=== PATIENT | female | born 1965 | race Caucasian/White ===

== ENCOUNTER 2016-09-12 17:39 | Emergency (ER) | payer BC, OTHER ==
--- NOTE | 2016-09-12 18:43 | ERNOTE ---
Lower Extremity HPI - Narrative Date of Service: 09/12/16 - General Lower Extremities Pain: hip: right, knee: right Time Seen by Provider: 09/12/16 17:51 Source: patient Exam Limitations: no limitations - Immun/Allergies/Home Medications Immunizations: IMMUNIZATION HX Immunizations Up to Date Yes History of Influenza Vaccine Yes Hx Pneumococcal Vaccination No Allergies/Adverse Reactions: Allergies Allergy/AdvReac Type Severity Reaction Status Date / Time hydromorphone HCl Allergy Mild Other Verified 09/12/16 17:49 [From Dilaudid] morphine Allergy Mild Itching Verified 09/12/16 17:49 Home Medications: HOME MEDICATIONS Cyanocobalamin (Vitamin B-12) [Vitamin B-12] 1,000 mcg PO DAILY 05/28/12 [Last Taken Unknown] Duloxetine HCl [Cymbalta] 120 mg PO DAILY 05/28/12 [Last Taken Unknown] Lansoprazole [Prevacid] 30 mg PO DAILY 05/28/12 [Last Taken Unknown] Lovastatin 40 mg PO DAILY 05/28/12 [Last Taken Unknown] Metoprolol Succinate [Toprol Xl] 100 mg PO BID 05/28/12 [Last Taken Unknown] Multivitamin [Multivitamins] 1 each PO DAILY 05/28/12 [Last Taken Unknown] Cyclobenzaprine HCl [Flexeril] 10 mg PO TID 03/07/15 [Last Taken Unknown] Meloxicam [Mobic] 25 mg PO DAILY 03/07/15 [Last Taken Unknown] traMADol HCL [Ultram] 25 mg PO BID 03/07/15 [Last Taken Unknown] Lidocaine [Aspercreme] 1 each TP PRN 09/12/16 [Last Taken Unknown] - History of Present Illness Narrative: Patient presents to the ED with lateral right hip pain. She states she was at work and her right knee gave out. This is not unusual for her and she has had this happen many times. What was different this time was that she felt a "pop" in her lateral right hip when this happened and she had immediate pain lateral right hip. She tells me she has had bursitis in this hip before that felt like this. Chronic orthopedic pains and radicular Sx but no new N/T/W. No fall or other injuries. Pain worse with movement and palpation. She has been bearing weight. No new back pain. She has not seen anyone else for this. She states she has chronic pain in her knee and that her knee is not really bothering her. No new knee pain that she can pinpoint. Occurred: just prior to arrival Location of Incident: work Method of Injury: Reports: twisted Loss of Consciousness: Reports: no loss of consciousness Modifying Factors - (Improves): Reports: rest Modifying Factors - (Worsens): Reports: movement, other - palpation Associated Symptoms: Denies: unable to bear weight, dizzy/light headedness, weakness, bowel/bladder problems Other Injuries: Reports: none Subsequent Symptoms: Denies: sensory loss, numbness, motor loss, bowel/bladder problem Prior Treament: Denies: recently seen Review of Systems - Review of Systems Constitutional: Absent: fever Respiratory: Present: no symptoms reported Cardiology: Present: no symptoms reported Gastrointestinal/Abdominal: Absent: abdominal pain Musculoskeletal: Present: See HPI Skin: Present: other - no laceration - Patient's Past Medical History Patient History - Medical: Arthritis, Fibromyalgia Patient History - Cardiac/Respiratory: Hyperlipidemia Patient History - Cancer: No Hx of Cancer Patient History - Surgical Procedures: Amputation, Appendectomy, Tubal Ligation Patient History - Other: None - Social History Living Situations: home Abuse History: No History of abuse Psych History: Hx of Anxiety, Hx of Depression, Hx of Bipolar Disorder Smoking Status: Never smoker Alcohol Use: rarely Drug Use: none - Immunizations Immunizations Up to Date: Yes Hx Pneumococcal Vaccination: No History of Influenza Vaccine: Yes Physical Exam - Physical Exam General Appearance: Present: alert, no apparent distress Eye Exam: Normal inspection: bilateral Ears, Nose, Throat: Present: normal ENT inspection Respiratory: Present: no respiratory distress Cardiovascular/Chest: Present: regular rate, rhythm, normal peripheral pulses Peripheral Pulses: N=norm/S=strong/W=weak/B=bound/A=absent: Dorsalis-pedis (R): Normal Gastrointestinal/Abdominal: Present: normal bowel sounds, nontender, soft Back Exam: Present: other - no acute vertebral tenderness. Extremity Exam: Present: other - She is able to ambulate but has an antalgic gate. She has moderate lateral hip tenderness to palpation. No repin tendenress. ROM of the hip does not elicit groin tendenres. All her Sx seem to be reproduced with palpation of the lateral hip. There is mild joint line tendenress medial knee and lateral knee but she relates this is pretty normal for her, she does not think she injured her knee. No other bone tenderness noted. Neurological Exam: Present: other - she has chronic numbness. I find no evidence of compartment syndrome or acute focal motor or sensory deficit. She can stand on her toes and heels. No clear motor or sensory deficit. Skin Exam: Absent: skin rash ED Progress - Vital Signs Patient's Vital Signs:: I have reviewed the patient's vital signs. Vital Signs: Vital Signs 09/12/16 17:45 Temperature 36.5 C Pulse Rate 88 Respiratory 17 Rate Blood Pressure 139/82 O2 Sat by Pulse 95 Oximetry - X-Ray X-Ray #1 X-Ray: hip Interpretation: Interp. by me X-ray Comments: No acute fracture seen. X-rays not being read by radiology in real time and this was relayed to the patient. X-Ray #2 X-Ray: knee Interpretation: Interp. by me X-ray Comments: No acute fracture seen. X-rays not being read in real time by radiology and this was related to the patient. - Progress/Reassessment Chief Complaint: Hip Pain/Injury Progress Note-Subjective: 09/12/16 18:40 No clear fracture seen. No acute neuro vascular deficit noted. No compartment syndrome. Pt declines walker. I discussed with her that the x-rays would not be read by radiology tonight and she understands. She wishes to go home. I disucssed warning signs and reasons to return as well as the need for close f/u. Departure Clinical Impression: Musculoskeletal pain - Departure Disposition: Home self-care Condition: Stable Instructions: Musculoskeletal Pain Additional Instructions: Rest. Your final x-ray reports will be available tomorrow. Home medications as directed. Return for increased pain, numbness, tingling, weakness or if your condition worsens or changes in any way. Follow-up tomorrow for a re- check. Referrals: Girish Robison MD [Primary Care Provider] -
--- OUTSIDE RECORDS SUMMARY | 2016-09-12 20:04 | XMS REPORT | Continuity of Care Document ---
:1965 Author Organization [facility] ([facility]) Address [address] [place] [address] Phone [phone] Care Team Providers Name Role Phone Girish Robison Primary Care Provider [phone] Source Comments This disclosure is being made pursuant to the Care Everywhere program, applicable federal and state laws, and may not contain all informaitonavailable regarding this patient.[facility] ([facility]) Active Allergies and Adverse Reactions Allergen Noted Date Severity Reactions Comments Latex 06/14/2009 Rash burning Current Medications Prescription Sig. Disp. Refills Start Date End Date Status DULoxetine (CYMBALTA) 30 take 30 mg by Active mg capsule mouth daily. lansoprazole (PREVACID) take 30 mg by Active 30 mg capsule mouth daily. metoPROLol (TOPROL XL) take 100 mg by Active 100 mg XL tablet mouth 2 times daily. multivitamin (MULTIPLE take 1 Tab by Active VITAMIN) tablet mouth daily. traZODone (DESYREL) 100 Take 50 mg by Active mg tablet mouth as needed. lovaSTATIN 20 mg tablet Take 40 mg by Active mouth every evening. traMADol 50 mg tablet One to two tabs po 60 Tab 1 05/29/2013 Active up to QID for right foot pain. 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 Right foot pain 12/17/2012 Last Assessment & Plan: Formatting of this note may be different from the original. Orders Placed This Encounter Medications traMADol 50 mg tablet Sig: One to two tabs po up to QID for right foot pain. Indications: PAIN Dispense: 60 Tab Refill: 1 She does not feel she has benefited from the meloxicam prescribed by rheumatology for her fibromyalgia and joint pain. We will try nabumetone. I encouraged her to followup with rheumatology. Work related injury 01/2010 right ankle sprain 11/27/2012 Last Assessment & Plan: She is at maximal medical improvement today. She may work without restrictions. Pain in joint, ankle and foot 11/06/2012 Fibromyalgia 10/28/2012 Sleep disturbance 10/28/2012 Clostridium difficile colitis 07/04/2009 Abnormal blood chemistry level 06/14/2009 Overview: Elevated Chromogranin A Chronic diarrhea of unknown origin 06/14/2009 Chronic abdominal pain 06/14/2009 Nausea & vomiting 06/14/2009 Heartburn 06/14/2009 Hypertension 06/14/2009 Depression 06/14/2009 Social History Tobacco Use Types Packs/Day Years Used Date Former Smoker 1 10 Quit: 06/04/1996 Smokeless Tobacco: Never Used Tobacco Cessation:Counseling Given: Yes Comments: Alcohol Use Drinks/Week oz/Week Comments Yes 0 Glasses of wine 0.0 occasional - last was 03/2012 Last Filed Vital Signs Vital Sign Reading Time Taken Blood Pressure 117/78 12/17/2012 1:15 PM CDT Pulse 83 12/17/2012 7:09 AM CDT Temperature 36.4 C (97.5 F) 12/17/2012 11:24 AM CDT Respiratory Rate 16 12/17/2012 7:09 AM CDT Height 1.6 m (5' 2.99") 12/17/2012 7:09 AM CDT Weight 97 kg (213 lb 13.5 oz) 12/17/2012 7:09 AM CDT Body Mass Index 37.89 12/17/2012 7:09 AM CDT Oxygen Saturation 94% 12/17/2012 12:00 PM CDT Plan of Care Health Maintenance Due Date Last Done Comments Hepatitis B Vaccine (1 of 3 - Primary Series) 1965 Tdap Vaccine 08/27/1978 Lipid Disorder Screening 08/27/1985 MMR Vaccine 08/27/1985 Td Vaccine 08/27/1985 Cervical Cancer Screening 08/27/1997 Mammogram 2007 Influenza Vaccine: Seasonal (#1) 12/19/2015 Results from Last 3 Months Not on file
[2016-09-12 21:26] VITALS: BP 129/78
== END 2016-09-12 18:45 | disposition home or self-care (01) ==
LOC: ER 17:39
DX: M79.1 Myalgia (principal); M19.90 Unspecified osteoarthritis, unspecified site; E78.5 Hyperlipidemia, unspecified; F41.9 Anxiety disorder, unspecified; F32.9 Major depressive disorder, single episode, unspecified

== ENCOUNTER 2017-02-25 18:35 | Emergency (ER) | payer BC, OTHER ==
[2017-02-25] MEDS ORDERED: diphenhydrAMINE HCL 50 MG/ML VIAL IM ONE (19:00)
[2017-02-25] MEDS ORDERED: METOCLOPRAMIDE HCL 5 MG/ML VIAL IM ONE (19:00)
[2017-02-25] MEDS ORDERED: KETOROLAC TROMETHAMINE 30 MG/ML VIAL IM ONE (19:00)
[2017-02-25] MEDS ORDERED: KETOROLAC TROMETHAMINE 30 MG/ML VIAL ONE (19:15)
[2017-02-25] MEDS ORDERED: METOCLOPRAMIDE HCL 5 MG/ML VIAL ONE (19:15)
[2017-02-25] MEDS ORDERED: diphenhydrAMINE HCL 50 MG/ML VIAL ONE (19:15)
--- NOTE | 2017-02-25 19:17 | ERNOTE ---
Trauma/Assault HPI - Narrative Date of Service: 02/25/17 - General Stated Complaint: FALL W/C HEAD AND NECK INJ Time Seen by Provider: 02/25/17 18:39 Source: patient Exam Limitations: no limitations - Immun/Allergies/Home Medications Immunizations: IMMUNIZATION HX Immunizations Up to Date Yes History of Influenza Vaccine No Hx Pneumococcal Vaccination No Allergies/Adverse Reactions: Allergies hydromorphone HCl [From Dilaudid] Allergy (Mild, Verified 09/12/16 17:49) Other Suicidal morphine Allergy (Mild, Verified 09/12/16 17:49) Itching Home Medications: HOME MEDICATIONS Cyanocobalamin (Vitamin B-12) [Vitamin B-12] 1,000 mcg PO DAILY 05/28/12 [Last Taken Unknown] Duloxetine HCl [Cymbalta] 90 mg PO DAILY 05/28/12 [Last Taken Unknown] Lansoprazole [Prevacid] 30 mg PO DAILY 05/28/12 [Last Taken Unknown] Metoprolol Succinate [Toprol Xl] 100 mg PO BID 05/28/12 [Last Taken Unknown] Multivitamin [Multivitamins] 1 each PO DAILY 05/28/12 [Last Taken Unknown] Cyclobenzaprine HCl [Flexeril] 10 mg PO TID 03/07/15 [Last Taken Unknown] Meloxicam [Mobic] 25 mg PO DAILY 03/07/15 [Last Taken Unknown] traMADol HCL [Ultram] 50 mg PO BID 03/07/15 [Last Taken Unknown] Cyclobenzaprine HCl [Flexeril] 10 mg PO TID PRN #30 tab 02/25/17 [Last Taken Unknown] Magnesium Oxide [Magnesium] 500 mg PO DAILY 02/25/17 [Last Taken Unknown] Naproxen [Naprosyn] 500 mg PO BID PRN #60 tab 02/25/17 [Last Taken Unknown] - History of Present Illness Narrative: Pt. comes in with c/o mid thoracic and lumbar back pain after tripping over a table and falling directly onto her bottom and lower back at work just prior to arrival. Pt. denies hitting her head but states that she has headache and lateral neck pain. Pt. denies any alleviating factors or prehospital treatment but states that movement exacerbates the pain. Review of Systems - Review of Systems Constitutional: Present: no symptoms reported. Absent: recent illness, fever, chills, weakness, fatigue, malaise EYE: Present: no symptoms reported ENT: Present: no symptoms reported Respiratory: Present: no symptoms reported. Absent: shortness of breath, cough , wheezing Cardiology: Present: no symptoms reported. Absent: chest pain, palpitations, claudication Gastrointestinal/Abdominal: Present: no symptoms reported. Absent: nausea, vomiting, diarrhea, abdominal pain Genitourinary: Present: no symptoms reported Musculoskeletal: Present: back pain - thoracic and lumbar, neck pain - lateral. Absent: joint pain Skin: Present: no symptoms reported. Absent: rash, change in hair/nails Neurological: Present: headache, dizziness/light-headedness - mild not new . Absent: numbness, tingling All Other Systems: All systems neg except as marked - Patient's Past Medical History Patient History - Medical: Anxiety, Depression, Osteoarthritis, Rheumatoid Arthritis Patient History - Cardiac/Respiratory: Hypertension, Hyperlipidemia Patient History - Cancer: No Hx of Cancer Patient History - Surgical Procedures: Appendectomy, Tubal Ligation Patient History - Other: None LMP (females 10-50): 2 months - Social History Living Situations: alone Abuse History: No History of abuse Psych History: Hx of Anxiety, Hx of Depression, Hx of Bipolar Disorder Smoking Status: Former smoker Alcohol Use: rarely Drug Use: none - Immunizations Immunizations Up to Date: Yes Hx Pneumococcal Vaccination: No History of Influenza Vaccine: No Physical Exam - Physical Exam General Appearance: Present: wd/wn, alert, no apparent distress Head Exam: Present: normal inspection, no evidence of injury Eye Exam: Normal inspection: bilateral, PERRL: bilateral, EOMI: bilateral Ears, Nose, Throat: Present: normal ENT inspection, normal pharynx Neck: Present: normal inspection, nontender. Absent: lymphadenopathy (R), lymphadenopathy (L) Respiratory: Present: no respiratory distress, normal breath sounds, no accessory muscle use, chest nontender, lungs clear Cardiovascular/Chest: Present: regular rate, rhythm, no murmur, normal peripheral pulses Gastrointestinal/Abdominal: Present: normal bowel sounds, nontender, nondistended, soft Back Exam: Present: vertebral tenderness - T2-L5, decreased range of motion - flexion and twisting Extremity Exam: Present: normal inspection, non-tender, normal range of motion, no edema Neurological Exam: Present: alert, oriented, normal mood/affect, no motor/ sensory deficits, 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 Absent: pallor, skin rash - C-Spine cleared by: Neg history & exam ED Progress - Vital Signs Patient's Vital Signs:: I have reviewed the patient's vital signs. Vital Signs: Vital Signs 02/25/17 18:39 Temperature 37.0 C Pulse Rate 104 H Respiratory 14 Rate Blood Pressure 129/92 O2 Sat by Pulse 97 Oximetry - CT/Ultrasound CT/Ultrasound Narrative: CT thorax without any acute abnormality. CT lumbar with central disc protrusion at L5 S1. - Progress/Reassessment Chief Complaint: Fall Plan - Plan Plan: Pt. with central disc protrusion of L5 S1 indicating possible disc herniation will refer back to [facility] and have them arrange for further referral. Departure Clinical Impression: Herniated lumbar intervertebral disc Strain of thoracic region Qualifiers: Encounter type: initial encounter Qualified Code(s): S29.019A - Strain of muscle and tendon of unspecified wall of thorax, initial encounter Fall Qualifiers: Encounter type: initial encounter Qualified Code(s): W19.XXXA - Unspecified fall, initial encounter - Departure Disposition: Home self-care Condition: Good Instructions: Herniated Disk, [id number], Thoracic Strain, [id number], Form - Excuse from Work, School, or Physical Activity Additional Instructions: Please call occupational health office tomorrow for further follow up. Referrals: Girish Robison MD [Primary Care Provider] - Prescriptions: Cyclobenzaprine HCl [Flexeril] 10 mg PO TID PRN #30 tab PRN Reason: MUSCLE SPASMS Naproxen [Naprosyn] 500 mg PO BID PRN #60 tab PRN Reason: Pain
[2017-02-25 22:02] VITALS: BP 149/88
== END 2017-02-25 22:18 | disposition home or self-care (01) ==
LOC: ER 18:35
DX: M51.26 Other intervertebral disc displacement, lumbar region (principal); S29.019A Strain of muscle and tendon of unspecified wall of thorax, initial encounter; W18.09XA Striking against other object with subsequent fall, initial encounter; Y93.9 Activity, unspecified; Y92.63 Factory as the place of occurrence of the external cause; Y99.0 Civilian activity done for income or pay; M19.90 Unspecified osteoarthritis, unspecified site; I10 Essential (primary) hypertension; E78.5 Hyperlipidemia, unspecified

== ENCOUNTER 2017-07-17 15:04 | Emergency (ER) | payer BC, OTHER ==
[2017-07-17 15:18] VITALS: BP 119/37
--- NOTE | 2017-07-17 15:21 | ERNOTE ---
Back Pain ER HPI Date of Service: 07/17/17 Presenting Symptoms: injury/pain to back, hx chronic back pain Time Seen by Provider: 07/17/17 15:19 Source: patient, RN notes reviewed Exam Limitations: no limitations Immunizations: IMMUNIZATION HX Immunizations Up to Date Yes History of Influenza Vaccine Yes Hx Pneumococcal Vaccination No Allergies/Adverse Reactions: Allergies hydromorphone HCl [From Dilaudid] Allergy (Mild, Verified 09/12/16 17:49) Other Suicidal morphine Allergy (Mild, Verified 09/12/16 17:49) Itching Home Medications: HOME MEDICATIONS Cyanocobalamin (Vitamin B-12) [Vitamin B-12] 1,000 mcg PO DAILY 05/28/12 [Last Taken Unknown] Duloxetine HCl [Cymbalta] 90 mg PO DAILY 05/28/12 [Last Taken Unknown] Lansoprazole [Prevacid] 30 mg PO DAILY 05/28/12 [Last Taken Unknown] Metoprolol Succinate [Toprol Xl] 100 mg PO BID 05/28/12 [Last Taken Unknown] Multivitamin [Multivitamins] 1 each PO DAILY 05/28/12 [Last Taken Unknown] Cyclobenzaprine HCl [Flexeril] 10 mg PO TID 03/07/15 [Last Taken Unknown] Meloxicam [Mobic] 25 mg PO DAILY 03/07/15 [Last Taken Unknown] traMADol HCL [Ultram] 50 mg PO BID 03/07/15 [Last Taken Unknown] Cyclobenzaprine HCl [Flexeril] 10 mg PO TID PRN #30 tab 02/25/17 [Last Taken Unknown] Magnesium Oxide [Magnesium] 500 mg PO DAILY 02/25/17 [Last Taken Unknown] Naproxen [Naprosyn] 500 mg PO BID PRN #60 tab 02/25/17 [Last Taken Unknown] Narrative: Talia is a 51 year old female who presents to the ED for low back pain. She admits to having low back pain and routinely taking Tramadol and Flexeril. She reports that she slipped in vegetable oil that had spilled on the floor while she was cooking breakfast, resulting in increased pain. She reports that she would normally go see her PCP and get a shot of Toradol but he is currently out of the office. Her pain is in the same location as usual, just worse. Date (Duration): 07/17/17 Timing: Reports: constant Quality/Severity: Reports: aching Location of pain: Reports: lower back, no radiation Recent Injury?: Reports: yes Possible Precipitating Factor: Reports: fall/near fall Modifying Factors - (Improves): Reports: nothing Modifying Factors - (Worsens): Reports: movement flexion Associated Symptoms: Denies: constipation/incontinence, nausea/vomiting, problems urinating, difficulty walking, numbess/weakness in legs Prior Treament: Reports: similar symptoms before. Denies: recently seen Review of Systems - Review of Systems Constitutional: Absent: recent illness, fever, chills EYE: Present: no symptoms reported ENT: Present: no symptoms reported Respiratory: Absent: shortness of breath, cough Cardiology: Absent: chest pain, syncope Gastrointestinal/Abdominal: Absent: nausea, abdominal pain Genitourinary: Present: no symptoms reported Musculoskeletal: Present: back pain. Absent: neck pain, joint pain Skin: Absent: rash, lesions, lumps Neurological: Absent: weakness, numbness, tingling Endocrine: Present: no symptoms reported Hematologic/Lymphatic: Present: no symptoms reported Psych: Present: no symptoms reported - Patient's Past Medical History Patient History - Medical: Anxiety, Depression, Osteoarthritis, Rheumatoid Arthritis Patient History - Cardiac/Respiratory: Hypertension, Hyperlipidemia Patient History - Cancer: No Hx of Cancer Patient History - Surgical Procedures: Appendectomy, Tubal Ligation Patient History - Other: None LMP (females 10-50): this week LMP (Calendar): 07/14/17 - Social History Living Situations: home Abuse History: No History of abuse Psych History: Hx of Anxiety, Hx of Depression, Hx of Bipolar Disorder Smoking Status: Former smoker Have you smoked in the past 12 months: No Do you dip or chew tobacco: No Alcohol Use: none Drug Use: none - Immunizations Immunizations Up to Date: Yes Hx Pneumococcal Vaccination: No History of Influenza Vaccine: Yes Physical Exam - Physical Exam General Appearance: Present: wd/wn, alert, no apparent distress Head Exam: Present: normal inspection, no evidence of injury Neck: Present: normal inspection, nontender, supple Respiratory: Present: no respiratory distress, normal breath sounds, no accessory muscle use, lungs clear Cardiovascular/Chest: Present: regular rate, rhythm, no murmur, normal peripheral pulses Gastrointestinal/Abdominal: Present: nontender, nondistended, soft Back Exam: Present: no CVA tenderness, no vertebral tenderness, decreased range of motion, other - Bilateral paraspinal tenderness in lumbar region. Absent: muscle spasm Extremity Exam: Present: normal inspection, normal range of motion, no edema Neurological Exam: Present: alert, oriented, normal mood/affect, no motor/ sensory deficits Skin Exam: Present: normal color, warm/dry ED Progress - Vital Signs Patient's Vital Signs:: I have reviewed the patient's vital signs. Vital Signs: Vital Signs 07/17/17 15:14 Temperature 36 C L Pulse Rate 73 Respiratory 18 Rate Blood Pressure 119/37 O2 Sat by Pulse 97 Oximetry - Progress/Reassessment Chief Complaint: Back Pain Progress:: Improved Departure Clinical Impression: Low back strain Qualifiers: Encounter type: initial encounter Qualified Code(s): S39.012A - Strain of muscle, fascia and tendon of lower back, initial encounter Fall Qualifiers: Encounter type: initial encounter Qualified Code(s): W19.XXXA - Unspecified fall, initial encounter - Departure Disposition: Home self-care Condition: Stable Instructions: Back Pain, Adult, Form - Excuse from Work, School, or Physical Activity Additional Instructions: Continue your routine medications Follow up with your doctor if pain continues Referrals: Girish Robison MD [Primary Care Provider] -
[2017-07-17] MEDS ORDERED: KETOROLAC TROMETHAMINE 60 MG/2 ML VIAL IM ONE ×2 (15:31→15:39)
== END 2017-07-17 15:45 | disposition home or self-care (01) ==
LOC: ER 15:04
DX: S39.012A Strain of muscle, fascia and tendon of lower back, initial encounter (principal); Z87.891 Personal history of nicotine dependence; W01.0XXA Fall on same level from slipping, tripping and stumbling without subsequent striking against object, initial encounter; Y93.G3 Activity, cooking and baking